=== PATIENT | male | born 1960 | race Caucasian/White ===

== ENCOUNTER → 2022-04-26 | Day surgery (SDC) | payer BC ==
[2022-04-25 10:13] VITALS: BMI 25.0
[~2022-04-26] MED LIST: IPRATROPIUM-ALBUTEROL 3 ML NEB INHALATION STA; LACTATED RINGERS 1,000 ML IV SCH; LIDOCAINE 1% (10MG/ML) FOR IV START INTRADERMA ONE; PROPOFOL 10 MG/ML 20 ML VIAL IV ONE
[2022-04-26 08:40] VITALS: TEMP 98.2
--- NOTE | 2022-04-26 09:11 | P.PCN ---
Date of Procedure: 04/26/22 Procedure(s) Performed: BRIEF HISTORY: Patient is a 62-year-old pleasant White male scheduled for an elective colonoscopy as a part of screening for colorectal neoplasia. PROCEDURE PERFORMED: Colonoscopy. PREOPERATIVE DIAGNOSIS: Screening for colon cancer. IV sedation per Anesthesia. PROCEDURE: After informed consent was obtained, the patient, was brought into the endoscopy unit. IV sedation was administered by Anesthesia under continuous monitoring. Digital rectal examination was normal. Initially the Olympus CF-160 flexible video colonoscope was then inserted in the rectum, gradually advanced into the cecum without any difficulty. Careful examination was performed as the scope was gradually being withdrawn. Ileocecal valve and the appendiceal orifice were visualized and appeared normal. Prep was excellent. Mucosa of the cecum, ascending colon, transverse colon, descending colon, sigmoid colon, and rectum appeared normal. Scattered sigmoid diverticulosis Retroflexion was performed in the rectum and grade 2 internal hemorrhoids were seen. The patient tolerated the procedure well. IMPRESSION: Normal-appearing colon from rectum to cecum with no evidence of colorectal neoplasia. Small internal hemorrhoids Scattered sigmoid diverticulosis RECOMMENDATIONS: Findings of this examination were discussed with the patient as well as his family. He was advised to have a repeat screening colonoscopy in 10 years.
[2022-04-26 09:48] VITALS: BP 121/67; RESP 18
[2022-04-26 10:20] VITALS: PULSE 74
== END ==
LOC: ORWHC2ENDO 08:18
PROVIDERS: ATTEND Internal Medicine Gastroenterology
DX: Z12.11 Encounter for screening for malignant neoplasm of colon (principal); K57.30 Diverticulosis of large intestine without perforation or abscess without bleeding; K64.8 Other hemorrhoids
CPT/HCPCS: 45378; 94640; J2704

== ENCOUNTER → 2023-11-15 | Outpatient (CLI) | payer BC ==
--- NOTE | 2023-11-15 12:48 | CT ---
EXAMINATION TYPE: CT chest wo con DATE OF EXAM: 11/15/2023 COMPARISON: None HISTORY: lung nodule CT DLP: 332.9 mGycm. Automated Exposure Control for Dose Reduction was Utilized. TECHNIQUE: CT scan of the thorax is performed without IV contrast. FINDINGS: LUNGS: The lungs are grossly clear, there is no concerning parenchymal mass or nodule identified. T here is no pleural effusion or pneumothorax seen. The tracheobronchial tree is patent. Mild emphysem atous changes. Mild basilar bronchiectasis. MEDIASTINUM: Lack of IV contrast is noted to limit evaluation for mediastinal and especially hilar ad enopathy. There are no definitive greater than 1 cm hilar or mediastinal lymph nodes. No cardiomega ly or pericardial effusion is seen. OTHER: Small hiatal hernia. Mild hypertrophic and degenerative changes of the spine. There is gynecom astia. IMPRESSION: 1. No acute intrathoracic process. No suspicious pulmonary nodule or mass. Follow-up recommendations for incidental pulmonary nodules are per [employer] or [employer].
== END | disposition home or self-care (01) ==
LOC: RADCTMAIN 10:45
PROVIDERS: ATTEND Family Medicine
DX: R91.8 Other nonspecific abnormal finding of lung field (principal)
CPT/HCPCS: 71250

== ENCOUNTER → 2024-02-17 | Outpatient (CLI) | payer BC ==
--- NOTE | 2024-02-17 15:43 | CT ---
EXAMINATION TYPE: CT chest wo con CT DLP: 597 mGycm, Automated exposure control for dose reduction was used. DATE OF EXAM: 02/17/2024 12:46 PM COMPARISON: Chest CT of 11/15/2023 CLINICAL INDICATION:Male, 63 years old with history of R91.8 abnormal findings lung boyd; PHH, f/u lung nodule TECHNIQUE: Multiple axial images were obtained through the chest. Sagittal and coronal reformats were created for review. Contrast used: mL of (None if empty) Oral contrast used: (None if empty) FINDINGS: LUNGS/ PLEURA: The lung parenchyma appears unremarkable. No sizable pulmonary nodules are appreciate d. No micronodules are appreciated. No change from prior exam. AIRWAY: Patent and unremarkable. HEART: Size within normal limits. MEDIASTINUM: No gross evidence of adenopathy. VASCULATURE: No aortic aneurysm. MUSCULOSKELETAL: No acute osseous abnormalities SOFT TISSUES/LYMPH NODES: Unremarkable. LOWER NECK: No significant findings. UPPER ABDOMEN: No significant findings. IMPRESSION: No acute intrathoracic process. No suspicious pulmonary nodule or pulmonary parenchymal mass.
== END | disposition home or self-care (01) ==
LOC: RADCTMAIN 12:27
PROVIDERS: ATTEND Family Medicine
DX: R91.8 Other nonspecific abnormal finding of lung field (principal)
CPT/HCPCS: 71250

== ENCOUNTER → 2024-06-15 | Outpatient (CLI) | payer BC ==
--- NOTE | 2024-06-15 11:42 | CT ---
EXAMINATION TYPE: CT abdomen pelvis w con CT DLP: 1193 mGycm, Automated exposure control for dose reduction was used. DATE OF EXAM: 06/15/2024 10:57 AM COMPARISON: CT chest 02/17/2024 CLINICAL INDICATION:Male, 64 years old with history of K40.90 UNIL INGUINAL HERNIA, W/O OBST OR GANGR ; inguinal hernia TECHNIQUE: Standard CT of the abdomen and pelvis following the administration of 100 cc of Isovue 3 00 IV contrast material and oral contrast. Coronal and sagittal reformats were performed. FINDINGS: LOWER CHEST: Posterior dependent subsegmental atelectasis is noted. ABDOMEN LIVER: Unremarkable GALLBLADDER AND BILE DUCTS: Unremarkable. PANCREAS: Unremarkable. SPLEEN: Unremarkable. ADRENAL GLANDS: Unremarkable. KIDNEYS AND URETERS: No evidence of hydronephrosis or renal calculus. The kidneys enhance symmetrical ly. Subcentimeter hypodense focus within the mid right kidney which is too small accurately character ize but likely represents a cyst. Contrast is demonstrated within both collecting systems on the divine yed phase. PELVIS BLADDER: Unremarkable REPRODUCTIVE: Unremarkable. ABDOMEN & PELVIS STOMACH AND BOWEL: Stomach and duodenum are unremarkable. No evidence of bowel obstruction. Few scatt ered colonic diverticula without evidence for acute diverticulitis. No focal bowel wall thickening or surrounding inflammatory changes. Enteric contrast reaches the mid small bowel. There is small bowel feces sign identified. No focal transition point. PERITONEUM: No evidence of pneumoperitoneum or free fluid. VASCULATURE: Minimal atherosclerotic calcifications are present throughout the abdominal aorta and it s branches. No evidence of aortic aneurysm. MUSCULOSKELETAL: No acute osseous abnormalities. Mild retrolisthesis of L3 on L4. Degenerative disc d isease of the lower lumbar spine. LYMPH NODES: No gross evidence for lymphadenopathy. SOFT TISSUE/ABDOMINAL WALL: Left inguinal hernia with the descending colon demonstrated protruding in to the defect opening. Tiny fat filled umbilical hernia. IMPRESSION: 1. Left inguinal hernia with the descending colon demonstrated protruding into the defect opening. N o evidence for obstruction. 2. Small bowel feces sign without evidence for focal transition point. No dilatation to suggest obstr uction. Findings suggest delayed small bowel transit. Correlate clinically.
== END | disposition home or self-care (01) ==
LOC: RADCTMAIN 08:52
PROVIDERS: ATTEND Family Medicine
DX: K40.90 Unilateral inguinal hernia, without obstruction or gangrene, not specified as recurrent (principal)
CPT/HCPCS: 74177; Q9967

== ENCOUNTER 2024-12-15 00:18 | Observation (INO) | payer BC ==
[2024-12-15 00:24] VITALS: RESP 18
--- NOTE | 2024-12-15 00:50 | ED ---
Recheck HPI - General Chief Complaint: Recheck/Abnormal Lab/Rx Stated Complaint: Rectal Bleed Time Seen by Provider: 12/15/24 00:34 Source: patient, EMS, RN notes reviewed, old records reviewed Mode of arrival: EMS Limitations: no limitations - History of Present Illness Initial Comments: This is a 64-year-old male. This male presents to this emergency department today for evaluation of rectal bleeding patient has had significant amount of bright red blood per rectum with clotting 7 days out of hemorrhoid surgery. He initially felt lightheaded dizzy with abdominal pain but although symptoms have resolved MD Complaint: abnormal lab (Concern for low hemoglobin with rectal bleed after hemorrhoid surgery) -: hour(s) Returns Today for: Called Because of Abnormal Lab/Test (Anemia) Symptoms Since Prior Visit: no new symptoms Associated Symptoms: none Treatments Prior to Arrival: other (0) - Related Data Home Medications Medication Instructions Recorded Confirmed Atorvastatin [Lipitor] 40 mg PO DAILY 04/25/22 04/25/22 Allergies Allergy/AdvReac Type Severity Reaction Status Date / Time levofloxacin [From Levaquin] Allergy Rash/Hives Verified 04/25/22 10:07 Review of Systems ROS Statement: Those systems with pertinent positive or pertinent negative responses have been documented in the HPI. ROS Other: All systems not noted in ROS Statement are negative. Past Medical History Past Medical History: Hyperlipidemia Additional Past Medical History / Comment(s): HX HEMORRHOIDS History of Any Multi-Drug Resistant Organisms: None Reported Past Surgical History: Orthopedic Surgery Additional Past Surgical History / Comment(s): COLONOSCOPY Past Anesthesia/Blood Transfusion Reactions: No Reported Reaction Past Psychological History: No Psychological Hx Reported Smoking Status: Former smoker Past Alcohol Use History: Occasional Past Drug Use History: None Reported - Past Family History Mother Family Medical History: No Reported History General Exam General appearance: alert, in no apparent distress Head exam: Present: atraumatic, normocephalic, normal inspection Eye exam: Present: normal appearance, PERRL, EOMI. Absent: scleral icterus, conjunctival injection, periorbital swelling ENT exam: Present: normal exam, mucous membranes moist Neck exam: Present: normal inspection. Absent: tenderness, meningismus, lymphadenopathy Respiratory exam: Present: normal lung sounds bilaterally. Absent: respiratory distress, wheezes, rales, rhonchi, stridor Cardiovascular Exam: Present: regular rate, normal rhythm, normal heart sounds. Absent: systolic murmur, diastolic murmur, rubs, gallop, clicks GI/Abdominal exam: Present: soft, normal bowel sounds. Absent: distended, tenderness, guarding, rebound, rigid Extremities exam: Present: normal inspection, full ROM, normal capillary refill. Absent: tenderness, pedal edema, joint swelling, calf tenderness Back exam: Present: normal inspection Neurological exam: Present: alert, oriented X3, CN II-XII intact Psychiatric exam: Present: normal affect, normal mood Skin exam: Present: warm, dry, intact, normal color. Absent: rash Course Vital Signs 12/15/24 00:19 Temperature 96.9 F L Pulse Rate 70 Respiratory 18 Rate Blood Pressure 122/87 O2 Sat by Pulse 97 Oximetry - Reevaluation(s) Reevaluation #1: 12/15/24 01:48 Reviewed Reevaluation #2: 12/15/24 02:34 Patient has no significant bright red blood per rectum the emergency department, his symptoms were prior to arrival Reevaluation #3: 12/15/24 02:34 Patient informed of results and questions answered Reevaluation #4: Was pt. sent in by a medical professional or institution (, PA, IRS AGENT, urgent care, hospital, or [place] health care facility...) When possible be specific @ -no Did you speak to anyone other than the patient for history (EMS, parent, family, police, friend...)? What history was obtained from this source @ -no Did you review nursing and triage notes (agree or disagree)? Why? @ -agree Are old charts reviewed (outside hosp., previous admission, EMS record, old EKG, old radiological studies, urgent care reports/EKG's, [place] health care facility records)? Report findings @ -yes Differential Diagnosis (chest pain, altered mental status, abdominal pain women, abdominal pain men, vaginal bleeding, weakness, fever, dyspnea, syncope, headache, dizziness, GI bleed, back pain, seizure, CVA, palpatations, mental health, musculoskeletal)? @ -prior EKG interpreted by me (3pts min.). @ -yes X-rays interpreted by me (1pt min.). @ -yes negative for acute disease CT interpreted by me (1pt min.). @ -no U/S interpreted by me (1pt. min.). @ -no What testing was considered but not performed or refused? (CT, X-rays, U/S, labs)? Why? @ -none What meds were considered but not given or refused? Why? @ -none Did you discuss the management of the patient with other professionals (professionals i.e. , PA, IRS AGENT, lab, RT, psych nurse, social secretary, storm chaser, teacher, submarine advisory team watch officer, rehabilitation case coordinator)? Give summary @ -no Was smoking cessation discussed for >3mins.? @ -no Was critical care preformed (if so, how long)? @ -no Were there social determinants of health that impacted care today? How? (Homelessness, low income, unemployed, alcoholism, drug addiction, transportation, low edu. Level, literacy, decrease access to med. care, usp, rehab)? @ -none Was there de-escalation of care discussed even if they declined (Discuss DNR or withdrawal of care, Hospice)? DNR status @ -no What co-morbidities impacted this encounter? (DM, HTN, Smoking, COPD, CAD, Cancer, CVA, ARF, Chemo, Hep., AIDS, mental health diagnosis, sleep apnea, morbid obesity)? @ -none Was patient admitted / discharged? Hospital course, mention meds given and route, prescriptions, significant lab abnormalities, going to OR and other pertinent info. @ - Undiagnosed new problem with uncertain prognosis? @ -no Drug Therapy requiring intensive monitoring for toxicity (Heparin, Nitro, Insulin, Cardizem)? @ -no Were any procedures done? @ -no Diagnosis/symptom? @ - Acute, or Chronic, or Acute on Chronic? @ -Acute Uncomplicated (without systemic symptoms) or Complicated (systemic symptoms)? @ -Complicated Side effects of treatment? @ -no Exacerbation, Progression, or Severe Exacerbation? @ -exacerbation Poses a threat to life or bodily function? How? (Chest pain, USA, NH, pneumonia, PE, COPD, DKA, ARF, appy, cholecystitis, CVA, Diverticulitis, Homicidal, Suicidal, threat to staff... and all critical care pts) @ -yes Reevaluation #5: Differential GI Bleed: Esophageal varices, aortoenteric fistula, Shameka-Ferguson, gastritis, peptic ulcer disease, diverticulosis, inflammatory bowel disease, hemorrhoids, fissure, colitis, malignancy, Meckel's diverticulum, this is not meant to be an all- inclusive list. - Consultations Consultation #1: Spoke with salty who agrees to admit this patient Medical Decision Making - Medical Decision Making 64 male to the ER for evaluation patient presents today for evaluation of postoperative bleeding bleeding from hemorrhoid surgery. Significant bleeding although no current active bleeding patient will be placed in observation for recheck hemoglobin - Lab Data Result diagrams: 12/15/24 01:00 12/15/24 01:00 Lab Results 12/15/24 12/15/24 12/15/24 Range/Units 01:00 01:00 01:00 WBC 8.0 (3.8-10.6) k/uL RBC 4.50 (4.30-5.90) m/uL Hgb 13.9 (13.0-17.5) gm/dL Hct 40.9 (39.0-53.0) % MCV 91.0 (80.0-100.0) fL MCH 30.9 (25.0-35.0) pg MCHC 34.0 (31.0-37.0) g/dL RDW 12.3 (11.5-15.5) % Plt Count 280 (150-450) k/uL MPV 8.2 Neutrophils % 61 % Lymphocytes % 22 % Monocytes % 10 % Eosinophils % 4 % Basophils % 0 % Neutrophils # 4.9 (1.3-7.7) k/uL Lymphocytes # 1.8 (1.0-4.8) k/uL Monocytes # 0.8 (0-1.0) k/uL Eosinophils # 0.3 (0-0.7) k/uL Basophils # 0.0 (0-0.2) k/uL PT 10.1 (10.0-12.5) sec INR 0.9 (<1.2) APTT 21.1 L (22.0-30.0) sec Sodium 135 L (137-145) mmol/L Potassium 4.3 (3.5-5.1) mmol/L Chloride 104 (98-107) mmol/L Carbon Dioxide 21 L (22-30) mmol/L Anion Gap 10 mmol/L BUN 20 (9-20) mg/dL Creatinine 1.05 (0.66-1.25) mg/dL Est GFR (CKD-EPI)AfAm 87 (>60 ml/min/1.73 sqM) Est GFR (CKD-EPI)NonAf 75 (>60 ml/min/1.73 sqM) Glucose 129 H (74-99) mg/dL Calcium 8.8 (8.4-10.2) mg/dL Total Bilirubin 0.5 (0.2-1.3) mg/dL AST 21 (17-59) U/L ALT 32 (4-49) U/L Alkaline Phosphatase 104 (38-126) U/L Troponin I (0.000-0.034) ng/mL Total Protein 6.6 (6.3-8.2) g/dL Albumin 3.9 (3.5-5.0) g/dL Blood Type Blood Type Recheck Bld Type Recheck Status Antibody Screen Spec Expiration Date 12/15/24 12/15/24 Range/Units 01:00 01:05 WBC (3.8-10.6) k/uL RBC (4.30-5.90) m/uL Hgb (13.0-17.5) gm/dL Hct (39.0-53.0) % MCV (80.0-100.0) fL MCH (25.0-35.0) pg MCHC (31.0-37.0) g/dL RDW (11.5-15.5) % Plt Count (150-450) k/uL MPV Neutrophils % % Lymphocytes % % Monocytes % % Eosinophils % % Basophils % % Neutrophils # (1.3-7.7) k/uL Lymphocytes # (1.0-4.8) k/uL Monocytes # (0-1.0) k/uL Eosinophils # (0-0.7) k/uL Basophils # (0-0.2) k/uL PT (10.0-12.5) sec INR (<1.2) APTT (22.0-30.0) sec Sodium (137-145) mmol/L Potassium (3.5-5.1) mmol/L Chloride (98-107) mmol/L Carbon Dioxide (22-30) mmol/L Anion Gap mmol/L BUN (9-20) mg/dL Creatinine (0.66-1.25) mg/dL Est GFR (CKD-EPI)AfAm (>60 ml/min/1.73 sqM) Est GFR (CKD-EPI)NonAf (>60 ml/min/1.73 sqM) Glucose (74-99) mg/dL Calcium (8.4-10.2) mg/dL Total Bilirubin (0.2-1.3) mg/dL AST (17-59) U/L ALT (4-49) U/L Alkaline Phosphatase (38-126) U/L Troponin I <0.012 (0.000-0.034) ng/mL Total Protein (6.3-8.2) g/dL Albumin (3.5-5.0) g/dL Blood Type A Positive Blood Type Recheck No Previous Record Bld Type Recheck Status CABO Indicated Antibody Screen NEGATIVE Spec Expiration Date 12/18/20242304 Disposition Clinical Impression: GI bleed, Postoperative hemorrhage Disposition: ADMITTED IP TO THIS [facility] Condition: Fair Is patient prescribed a controlled substance at d/c from ED?: No Referrals: Nasir Jimenez MD [Primary Care Provider] - 1-2 days Time of Disposition: 02:30
[2024-12-15] MEDS: SODIUM CHLORIDE 0.9% 500 ML 500 ML IV STA (01:25)
[2024-12-15 01:33] LABS: Basophils % (A) 0 %; Eosinophils # (A) 0.3 k/uL (0-0.7); Eosinophils % (A) 4 %; HCT 40.9 % (39.0-53.0); HGB 13.9 gm/dL (13.0-17.5); Lymphocytes # (A) 1.8 k/uL (1.0-4.8); Lymphocytes % (A) 22 %; MCH 30.9 pg (25.0-35.0); Mean Platelet Volume 8.2; Monocytes # (A) 0.8 k/uL (0-1.0); Monocytes % (A) 10 %; Neutrophils # (A) 4.9 k/uL (1.3-7.7); Neutrophils % (A) 61 %; Platelet Count 280 k/uL (150-450); RDW 12.3 % (11.5-15.5)
[2024-12-15 01:35] LABS: INR 0.9 (<1.2); Partial Thromboplastin Time 21.1 sec (22.0-30.0); Prothrombin Time 10.1 sec (10.0-12.5)
[2024-12-15 01:41] LABS: ALT 32 U/L (4-49); AST 21 U/L (17-59); African American GFR (CKD) 87 (>60 ml/min/1.73 sqM); Albumin 3.9 g/dL (3.5-5.0); Alkaline Phosphatase 104 U/L (38-126); Anion Gap 10 mmol/L; Blood Urea Nitrogen 20 mg/dL (9-20); Calcium 8.8 mg/dL (8.4-10.2); Carbon Dioxide 21 mmol/L (22-30); Chloride 104 mmol/L (98-107); Glucose 129 mg/dL (74-99); Non-African American GFR(CKD) 75 (>60 ml/min/1.73 sqM); Potassium 4.3 mmol/L (3.5-5.1); Sodium 135 mmol/L (137-145); Total Bilirubin 0.5 mg/dL (0.2-1.3); Total Protein 6.6 g/dL (6.3-8.2)
[2024-12-15] MEDS ORDERED: NALOXONE 0.4 MG/ML 1 ML VIAL IV PRN (02:32)
[2024-12-15] MEDS ORDERED: MORPHINE SULFATE 4 MG/ML SYRINGE IV PRN (02:32)
[2024-12-15] MEDS ORDERED: ONDANSETRON 4 MG/2 ML VIAL IVP PRN (02:32)
[2024-12-15] MEDS: SODIUM CHLORIDE 0.9% 1,000 ML IV SCH (02:53)
--- NOTE | 2024-12-15 04:23 | P.HPIM ---
History of Present Illness H&P Date: 12/15/24 Patient is a 64-year-old male with a PMH of hyperlipidemia and hemorrhoids who presents to the emergency room for bright red blood per rectum. The patient underwent hemorrhoidectomy 1 week ago at a nearby [facility] facility and was recovering well until earlier tonight at around 11 PM when he suddenly felt some dampness in his groin region. He subsequently noticed bleeding. Upon using the toilet, he noticed a profuse amount of bright red bleeding in the toilet bowl. He then proceeded to pass a large clot. He then had multiple other episodes of bleeding, although it subsequently stopped after a total of 15 minutes. He has had no further episodes after 11:30 PM. He denied any additional complaints. He denied experiencing abdominal pain, nausea, vomiting. In the emergency room laboratory evaluation revealed a hemoglobin of 13.9 with sodium 135, CO2 21, glucose 129 with troponin less than 0.012. ED documentation reviewed and case discussed with ED provider. Review of systems: Pertinent positives and negatives as discussed in HPI, a complete review of systems was performed and all other systems are negative. Physical examination: Vital signs reviewed General: non toxic, no distress, appears at stated age, normal weight Derm: no unusual rashes/lesions, warm Head: atraumatic, normocephalic, symmetric Eyes: EOMI, no lid lag, anicteric sclera, pupils equal round reactive to light ENT: Nose and ears atraumatic Neck: No cervical lymphadenopathy, trachea midline, supple Mouth: no lip lesion, mucus membranes moist Cardiovascular: S1S2 reg, no murmur, positive dorsalis pedis pulse bilateral, no edema Lungs: CTA bilateral, no rhonchi, no rales, no accessory muscle use Abdominal: soft, nontender to palpation, no guarding Ext: muscle strength 5 out of 5 in all 4 extremities grossly, no gross muscle atrophy, no contractures, Neuro: CN II-XI grossly intact, no gross focal neuro deficits Psych: Alert, oriented, appropriate affect Assessment: Acute lower GI bleeding status post hemorrhoidectomy 1 week ago Chronic conditions: Hyperlipidemia Imaging: None performed Data Review: In the emergency room laboratory evaluation revealed a hemoglobin of 13.9 with sodium 135, CO2 21, glucose 129 with troponin less than 0.012. Plan: Continue to monitor CBC GEN surge consulted N.p.o. for now DVT prophylaxis: IPCD The patient is admitted with an anticipated fewer than 2 midnight stay for evaluation of GIB CODE STATUS: Full Code Discussed with: Patient Anticipated discharge place: Home Past Medical History Past Medical History: Hyperlipidemia Additional Past Medical History / Comment(s): HX HEMORRHOIDS History of Any Multi-Drug Resistant Organisms: None Reported Past Surgical History: Orthopedic Surgery Additional Past Surgical History / Comment(s): COLONOSCOPY Past Anesthesia/Blood Transfusion Reactions: No Reported Reaction Past Psychological History: No Psychological Hx Reported Smoking Status: Former smoker Past Alcohol Use History: Occasional Past Drug Use History: None Reported - Past Family History Mother Family Medical History: No Reported History Medications and Allergies Home Medications Medication Instructions Recorded Confirmed Type Atorvastatin [Lipitor] 40 mg PO DAILY 04/25/22 04/25/22 History Allergies Allergy/AdvReac Type Severity Reaction Status Date / Time levofloxacin [From Levaquin] Allergy Rash/Hives Verified 04/25/22 10:07 Physical Exam Vitals: Vital Signs Temp Pulse Resp BP Pulse Ox 12/15/24 00:19 96.9 F L 70 18 122/87 97 Intake and Output 12/14/24 12/14/24 12/15/24 14:59 22:59 06:59 Other: Weight 86.183 kg Results CBC & Chem 7: 12/15/24 01:00 12/15/24 01:00 Labs: Abnormal Lab Results - Last 24 Hours (Table) 12/15/24 12/15/24 Range/Units 01:00 01:00 APTT 21.1 L (22.0-30.0) sec Sodium 135 L (137-145) mmol/L Carbon Dioxide 21 L (22-30) mmol/L Glucose 129 H (74-99) mg/dL
[2024-12-15 11:55] VITALS: BP 115/76; PULSE 69; TEMP 98.2
--- NOTE | 2024-12-15 14:21 | P.GSCN ---
History of Present Illness Consult date: 12/15/24 History of present illness: CHIEF COMPLAINT: Rectal bleeding HISTORY OF PRESENT ILLNESS: This is a 64-year-old male who is status post hemorrhoidectomy about a week ago with surgeon out of [place]. Patient reports that yesterday evening he started having a large amount of bright red blood per rectum with clots. Patient and became concerned and called EMS and patient came in for evaluation. Hemoglobin was 13.9. Patient reports since being in the ER he has had no further bleeding. He did have flatus with out any passage of blood. Patient does report taking Motrin and Baltic at home. Denies being on any blood thinners. PAST MEDICAL HISTORY: Hyperlipidemia, hemorrhoids PAST SURGICAL HISTORY: Hemorrhoidectomy MEDICATIONS: See below ALLERGIES: See below SOCIAL HISTORY: No illicit drug use. REVIEW OF SYSTEMS: CONSTITUTIONAL: Denies fever or chills. HEENT: Denies blurred vision, vision changes, or eye pain. Denies hemoptysis CARDIOVASCULAR: Denies chest pain or pressure. RESPIRATORY: No shortness of breath. GASTROINTESTINAL: See HPI for pertinent findings HEMATOLOGIC: Denies bleeding disorders. GENITOURINARY: Denies any blood in urine or increased urinary frequency. SKIN: Denies pruitis. Denies rash. PHYSICAL EXAM: VITAL SIGNS: Reviewed GENERAL: Well-developed in no acute distress. HEENT: No sclera icterus. Extraocular movements grossly intact. Moist buccal mucosa. Head is atraumatic, normocephalic. No nasal drainage. ABDOMEN: Soft. Nondistended. Nontender. NEUROLOGIC: Alert and oriented. Cranial nerves II through XII grossly intact. LABORATORY DATA: WBC 8.0 Hgb 13.9 platelets 280 Sodium 135 potassium 4.3 creatinine 1.05 IMAGING: ASSESSMENT: 1. Postop rectal bleeding after hemorrhoid surgery. Bleeding has now resolved PLAN: -Continue to monitor for any signs or symptoms of bleeding -Start regular diet -Recommend that patient follows up with his surgeon Physician Regeneration Operator note has been reviewed by physician. Signing provider agrees with the documented findings, assessment, and plan of care. Past Medical History Past Medical History: Hyperlipidemia Additional Past Medical History / Comment(s): HX HEMORRHOIDS History of Any Multi-Drug Resistant Organisms: None Reported Past Surgical History: Orthopedic Surgery Additional Past Surgical History / Comment(s): COLONOSCOPY Past Anesthesia/Blood Transfusion Reactions: No Reported Reaction Past Psychological History: No Psychological Hx Reported Smoking Status: Former smoker Past Alcohol Use History: Occasional Past Drug Use History: None Reported - Past Family History Mother Family Medical History: No Reported History Medications and Allergies Home Medications Medication Instructions Recorded Confirmed Type Atorvastatin [Lipitor] 40 mg PO HS 04/25/22 12/15/24 History FLUoxetine HCL [PROzac] 20 mg PO DAILY 12/15/24 12/15/24 History Allergies Allergy/AdvReac Type Severity Reaction Status Date / Time levofloxacin [From Levaquin] Allergy Rash/Hives Verified 12/15/24 07:26 Surgical - Exam Vital Signs Temp Pulse Resp BP Pulse Ox 96.9 F L 70 18 122/87 97 12/15/24 00:19 12/15/24 00:19 12/15/24 00:19 12/15/24 00:19 12/15/24 00:19 Results - Labs 12/15/24 01:00 12/15/24 01:00 Abnormal Lab Results - Last 24 Hours (Table) 12/15/24 12/15/24 Range/Units 01:00 01:00 APTT 21.1 L (22.0-30.0) sec Sodium 135 L (137-145) mmol/L Carbon Dioxide 21 L (22-30) mmol/L Glucose 129 H (74-99) mg/dL Diabetes panel 12/15/24 Range/Units 01:00 Sodium 135 L (137-145) mmol/L Potassium 4.3 (3.5-5.1) mmol/L Chloride 104 (98-107) mmol/L Carbon Dioxide 21 L (22-30) mmol/L BUN 20 (9-20) mg/dL Creatinine 1.05 (0.66-1.25) mg/dL Glucose 129 H (74-99) mg/dL Calcium 8.8 (8.4-10.2) mg/dL AST 21 (17-59) U/L ALT 32 (4-49) U/L Alkaline Phosphatase 104 (38-126) U/L Total Protein 6.6 (6.3-8.2) g/dL Albumin 3.9 (3.5-5.0) g/dL Calcium panel 12/15/24 Range/Units 01:00 Calcium 8.8 (8.4-10.2) mg/dL Albumin 3.9 (3.5-5.0) g/dL Pituitary panel 12/15/24 Range/Units 01:00 Sodium 135 L (137-145) mmol/L Potassium 4.3 (3.5-5.1) mmol/L Chloride 104 (98-107) mmol/L Carbon Dioxide 21 L (22-30) mmol/L BUN 20 (9-20) mg/dL Creatinine 1.05 (0.66-1.25) mg/dL Glucose 129 H (74-99) mg/dL Calcium 8.8 (8.4-10.2) mg/dL Adrenal panel 12/15/24 Range/Units 01:00 Sodium 135 L (137-145) mmol/L Potassium 4.3 (3.5-5.1) mmol/L Chloride 104 (98-107) mmol/L Carbon Dioxide 21 L (22-30) mmol/L BUN 20 (9-20) mg/dL Creatinine 1.05 (0.66-1.25) mg/dL Glucose 129 H (74-99) mg/dL Calcium 8.8 (8.4-10.2) mg/dL Total Bilirubin 0.5 (0.2-1.3) mg/dL AST 21 (17-59) U/L ALT 32 (4-49) U/L Alkaline Phosphatase 104 (38-126) U/L Total Protein 6.6 (6.3-8.2) g/dL Albumin 3.9 (3.5-5.0) g/dL
--- NOTE | 2024-12-15 14:52 | P.DS ---
Providers Date of admission: 12/15/24 02:32 Expected date of discharge: 12/15/24 Attending physician: Rufina Shane MD Consults: 12/15/24 02:32 Consult Physician Routine Consulting Provider: Edmundo Borrero Consult Reason/Comments: postopBleed Do you want consulting provider notified?: Yes Primary care physician: Nasir [facility] Hospital Course: Acute lower GI bleeding status post hemorrhoidectomy 1 week ago Chronic conditions: Hyperlipidemia Hospital Course: Patient is a 64-year-old male with a PMH of hyperlipidemia and hemorrhoids who presents to the emergency room for bright red blood per rectum. The patient underwent hemorrhoidectomy 1 week ago at a nearby [facility] facility and was recovering well until earlier tonight at around 11 PM when he suddenly felt some dampness in his groin region. He subsequently noticed bleeding. Upon using the toilet, he noticed a profuse amount of bright red bleeding in the toilet bowl. He then proceeded to pass a large clot. He then had multiple other episodes of bleeding, although it subsequently stopped after a total of 15 minutes. He has had no further episodes after 11:30 PM. He denied any additional complaints. He denied experiencing abdominal pain, nausea, vomiting. In the emergency room laboratory evaluation revealed a hemoglobin of 13.9 with sodium 135, CO2 21, glucose 129 with troponin less than 0.012. Patient CBC did not show any drop of hemoglobin and his bleeding spontaneously resolved. He was evaluated by surgery and felt no further needed testing was necessary and that he follow-up with the surgeon which she already has a follow-up for on the . Patient was counseled to return to the emergency room in case of further uncontrolled bleeding. He was discharged home with instructions to follow-up with PCP and surgery. Gen: In NAD, non-toxic HEENT: normocephalic, atraumatic, hearing acuity is intant, mucous membranes moist CVS: perfusing all extremities well, no pitting edema, Respiratory: symmetric chest expansion, no accessory muscle use, GI: soft, NTTP, ND, : no suprapubic tenderness, no CVA tenderness MSK/Derm: no rashes, cyanosis Neuro: CN II-XII intact, no motor weakness, Psych: cooperative, euthymic mood, judgment and insight is intact Patient Condition at Discharge: Good Plan - Discharge Summary New Discharge Prescriptions: Continue Atorvastatin [Lipitor] 40 mg PO HS FLUoxetine HCL [PROzac] 20 mg PO DAILY Discharge Medication List Atorvastatin [Lipitor] 40 mg PO HS 04/25/22 [History] FLUoxetine HCL [PROzac] 20 mg PO DAILY 12/15/24 [History] Follow up Appointment(s)/Referral(s): Nasir Jimenez MD [Primary Care Provider] - 1-2 days Discharge Disposition: HOME SELF-CARE
== END 2024-12-15 16:32 | disposition home or self-care (01) ==
LOC: EC 00:18 → 6NMEDSUR 02:32 → 1SOBS 10:37 → 6NMEDSUR 11:34
PROVIDERS: ADMIT Internal Medicine; ATTEND Internal Medicine
DX: K92.2 Gastrointestinal hemorrhage, unspecified (principal); E78.5 Hyperlipidemia, unspecified; Z88.1 Allergy status to other antibiotic agents; Z79.899 Other long term (current) drug therapy; Z87.891 Personal history of nicotine dependence; Z98.890 Other specified postprocedural states
CPT/HCPCS: 96360; 99285; 36415; 86900; 86901; 80053; 84484; 85025; 85610; 85730; 86850; G0378 ×2